=== PATIENT | female | born 1980 | race Caucasian/White ===

== ENCOUNTER 2022-11-18 16:04 | Emergency (ER) | payer OTHER, SELFPAY ==
[2022-11-18 16:22] VITALS: BP 134/84; PULSE 67; RESP 20; TEMP 37.2; O2SAT 98
--- NOTE | 2022-11-18 17:02 | ED.ABDPAIN ---
HPI - Abdominal Pain General Chief Complaint: Abdominal Pain Stated Complaint: poss diverticulitis Source: patient Mode of arrival: ambulatory Limitations: no limitations History of Present Illness HPI narrative: Patient presents for evaluation of left lower quadrant pain. Symptom onset today. Pain is intermittent, sharp, stabbing, 8/10 in severity, worse with certain movements. She has experienced nausea without vomiting. She also reports change in bowel pattern. She normally has several bowel movements per day. She had 1 small bowel movement earlier today, without the presence of blood or mucus in the stool. No fever or chills. She has an underlying history of Crohn's and diverticulosis. She is currently on sulfasalazine. she denies any urinary symptoms. No vaginal bleeding or discharge. She consumes ETOH socially. Related Data Home Medications Medication Instructions Recorded Confirmed lamotrigine 25 mg tablet 25 mg PO DAILY 11/18/22 11/18/22 omeprazole 40 mg capsule,delayed 40 mg PO DAILY 11/18/22 11/18/22 release sulfasalazine 500 mg 500 mg PO DAILY 11/18/22 11/18/22 tablet,delayed release Allergies Allergy/AdvReac Type Severity Reaction Status Date / Time No Known Allergies Allergy Verified 11/18/22 16:20 Review of Systems Review of Systems: CONSTITUTIONAL: Denies fever, chills, or sweats. EYES: Denies visual changes, redness, or discharge. ENT: Denies rhinorrhea, congestion, sore throat, or otalgia. CARDIOVASCULAR: Denies chest pain, palpitations, or edema. RESPIRATORY: Denies cough or dyspnea. GASTROINTESTINAL: Reports left lower quadrant pain and nausea. Reports decreased frequency of bowel movements. Denies vomiting or diarrhea GENITOURINARY: Denies dysuria or hematuria. SKIN: Denies rash or itching. MUSCULOSKELETAL: Denies back pain, joint pain, or myalgia. NEUROLOGIC: Denies headache, numbness, dizziness, or weakness. PSYCHIATRIC: Denies anxiety or depression. [facility] Past Medical History Medical History (Updated 11/18/22 @ 17:09 by Moris Bernal, WALDEMAR, ) Crohn disease Diverticulosis Surgical History Surgical History History of tonsillectomy Family History Family History Mother Family history non-contributory Social History Social History Smoking packs per day: 0.25 Smoking cigarettes per day: 5.0 Smoking status: Current every day smoker Alcohol intake: current Alcohol use details: social Substance use: never Living arrangements: with family Gender identity (if verbalized by the patient): Female Sexual Orientation (if Verbalized by the Patient): Straight or Heterosexual Spiritual care concerns: No Exam Narrative: GENERAL: Well-appearing, well-nourished, and in no acute distress. HEAD: Normocephalic, atraumatic. EYES: PERRLA and EOMI. ENT: Nares clear, no rhinorrhea or epistaxis. Mucous membranes moist. Oropharynx without tonsillar hypertrophy exudate or other lesions. Bilateral TMs pearly johnson nonbulging NECK: Supple. No adenopathy or masses. No carotid bruits or JVD CHEST: Clear to auscultation. No respiratory distress. No wheezes rales or rhonchi HEART: Regular rate and rhythm. No murmur heard. Normal peripheral pulses. ABDOMEN: Soft, tenderness noted in left lower quadrant without rebound or guarding. Abdomen is nondistended, normal active bowel sounds. EXTREMITIES: Normal range of motion. No edema. SKIN: Warm, dry, no rash. NEURO: No focal deficits. Alert and oriented x3. PSYCH: Normal mood and affect. Course Course Emergency Course: This is a 42-year-old female who presented for evaluation of left lower quadrant pain with an underlying history of Crohn's and diverticulosis. I am concerned that this is diverticulitis and she would likely benefit from labs
== END 2022-11-18 17:02 | disposition home or self-care (01) ==
LOC: EXPTROY 16:09
PROVIDERS: Emergency Provider Nurse Practitioner
DX: R10.32 Left lower quadrant pain (principal); K50.90 Crohn's disease, unspecified, without complications; Z87.19 Personal history of other diseases of the digestive system; F17.210 Nicotine dependence, cigarettes, uncomplicated
CPT/HCPCS: 99202; G0463

== ENCOUNTER 2022-11-18 17:16 | Emergency (ER) | payer OTHER, SELFPAY ==
--- NOTE | ~2022-11-18 | CT_ITS ---
EXAMINATION: CT abdomen pelvis w con DATE: 11/18/2022 20:42 INDICATION: Eval diverticulitis/crohns TECHNIQUE: Computed tomography (CT) of the abdomen and pelvis was performed with 100 mL Omnipaque-350 intravenous contrast. Automated exposure control and iterative reconstruction technique were employe d. The dose-length product was 1212.06 mGy-cm. COMPARISON: None. FINDINGS: Lower thorax: Lingular scar/atelectasis. Liver: Enlarged. Diffusely fatty infiltrated. Biliary/Gallbladder: Gallbladder is normal. No bile duct dilation. Pancreas: No mass or duct dilation. Spleen: Normal. Adrenals:No mass. Kidneys: No mass, stone, or hydronephrosis. GI tract: Mild distal esophageal and gastric wall edema No small or large bowel dilation. Normal appe ndix. Scattered diverticulosis. Short segment wall thickening at the junction of the distal descendin g colon and sigmoid colon, with adjacent inflammatory change and a single, inflamed diverticulum. No free air or fluid. Mesentery/Peritoneum: No ascites, mass, or free air. Retroperitoneum: No mass. Pelvis: Pelvic organs are within normal limits. Soft Tissues: Soft tissues and body wall unremarkable. Bones: No acute osseous finding. IMPRESSION: Hepatomegaly with steatosis. Acute uncomplicated diverticulitis in the left lower quadrant, at the ju nction of the distal descending and sigmoid colon. Reviewed, dictated and finalized at location K. IMPRESSION: Hepatomegaly with steatosis. Acute uncomplicated diverticulitis in the left low er quadrant, at the junction of the distal descending and sigmoid colon.
[2022-11-18 17:17] VITALS: BP 145/87; PULSE 92; RESP 16; TEMP 36.3; O2SAT 99
[2022-11-18 17:42] LABS: Basophils Absolute Auto 0.1 K/mm3 (0.0-0.1); Basophils Percent Auto 0.4 % (0.2-1.2); Eosinophils Absolute Auto 0.3 K/mm3 (0-0.3); Eosinophils Percent Auto 1.6 % (0-4.4); Hematocrit 42.9 % (37.0-47.0); Hemoglobin 14.2 g/dL (12.0-15.0); Immature Granulocyte Absolute 0.08 K/mm3 (0.00-0.031); Immature Granulocyte Percent A 0.5 % (0-0.5); Lymphocytes Absolute Auto 3.92 K/mm3 (0.9-3.2); Lymphocytes Percent Auto 24.4 % (18.3-44.2); Mean Corpuscular HGB Conc 33.1 g/dl (32-36); Mean Corpuscular Hemoglobin 30.5 pg (26-34); Mean Corpuscular Volume 92.3 fl (80-100); Mean Platelet Volume 11.1 fl (7.4-10.4); Monocytes Absolute Auto 1.2 K/mm3 (0.1-0.6); Monocytes Percent Auto 7.4 % (2.6-8.5); Neutrophils Absolute Auto 10.6 K/mm3 (1.3-6.7); Neutrophils Percent Auto 65.7 % (45.5-73.1); Platelet Count Result 261 k/mm3 (150-375); Red Blood Count 4.65 M/mm3 (4.2-5.4); Red Cell Distribution Width 12.9 % (11.5-14.5); White Blood Count 16.1 K/mm3 (4.5-10.0)
[2022-11-18 18:00] LABS: Alanine Aminotransferase 36 U/L (6-35); Albumin Level 4.4 g/dL (3.5-5.1); Alkaline Phosphatase 77 U/L (38-126); Anion Gap 7 mmol/L (8-16); Aspartate Amino Transferase 28 U/L (14-36); Bilirubin,Total 0.6 mg/dL (0.2-1.3); Blood Urea Nitrogen 17 mg/dL (7-17); Calcium 8.8 mg/dL (8.4-10.2); Carbon Dioxide 25 mmol/L (22-30); Chloride 105 mmol/L (98-107); Estimated CRCL calculation 136 ml/min; Estimated Glomerular Filt Rate > 60; Glucose 97 mg/dL (65-110); Lipase 45 U/L (23-300); Sodium 137 mmol/L (137-145)
[2022-11-18 18:20] LABS: Appearance Urine Cloudy (Clear); Bacteria Urine None Seen /hpf; Bilirubin Urine Negative (Negative); Blood Urine Negative (Negative); Color Urine Dark Yellow (Yellow); Glucose Urine UA Negative (Negative); Ketones Urine Negative (Negative); Leukocyte Esterase Ur Negative LEU/UL (Negative); Nitrate Urine Negative (Negative); Non Pathogenic Casts 0-2; Protein Urine Negative (Negative); RBC Urine 0-2 /hpf (0-2); Specific Grav Ur 1.028 (1.001-1.035); Squamous Epithelial Cell Urine None seen /hpf (Few); Urobilinogen Urine 0.2 mg/dL (<2.0); WBC Urine 0-5 /hpf; pH Urine 5.5 (5.0-9.0)
[2022-11-18 18:22] LABS: Add Urine Microscopic? YES
--- NOTE | 2022-11-18 20:38 | ED.GENADULT ---
HPI - General Adult General Chief complaint: Abdominal Pain Stated complaint: abdominal pain Time Seen by Provider: 11/18/22 19:24 History of Present Illness HPI narrative: this is a 42-year-old female with history of Crohn's and diverticular colitis presenting to ED with a chief complaint of abdominal pain. Pain is located in the left lower quadrant. Started this morning and woke her up from sleep. It is a stabbing pain in left lower quadrant that date out of 10 in intensity and comes and goes. This feels like when she had diverticulitis in the past. It is worse when she presses on it. There are no alleviating symptoms. She has not taken any pain medication. She has had some nausea and subjective fevers. She has had a change in her bowel habits but denies hematochezia or melena. She denies vomiting chest pain difficulty breathing urinary symptoms. Her last case of diverticulitis was 4-5 years ago. Her Crohn's has been under control. Related Data Home Medications Medication Instructions Recorded Confirmed lamotrigine 25 mg tablet 25 mg PO DAILY 11/18/22 11/18/22 omeprazole 40 mg capsule,delayed 40 mg PO DAILY 11/18/22 11/18/22 release sulfasalazine 500 mg 500 mg PO DAILY 11/18/22 11/18/22 tablet,delayed release Allergies Allergy/AdvReac Type Severity Reaction Status Date / Time No Known Allergies Allergy Verified 11/18/22 17:20 [facility] Past Medical History Medical History (Updated 11/18/22 @ 21:11 by Sterling Layton MD) Crohn disease Diverticulitis Diverticulosis Surgical History Surgical History History of tonsillectomy Family History Family History Mother Family history non-contributory Social History Social History Smoking packs per day: 0.25 Smoking cigarettes per day: 5.0 Smoking status: Current every day smoker Alcohol intake: current Alcohol use details: social Substance use: never Living arrangements: with family Gender identity (if verbalized by the patient): Female Sexual Orientation (if Verbalized by the Patient): Straight or Heterosexual Spiritual care concerns: No Exam Narrative: APPEARANCE: No apparent distress. Head: atraumatic. EYES: EOMI, NOSE: Atraumatic NECK: Trachea midline RESPIRATORY: No increased rate of breathing CARDIOVASCULAR: RRR, ABDOMINAL: Tenderness palpation left lower quadrant, no guarding or rebound. Soft. MUSCULOSKELETAl: No obvious deformities NEURO: Alert. Moving 4/4 extremities SKIN:: Warm, dry. Normal color PSYCHIATRIC: Normal affect Course Vital Signs Vital signs: Vital Signs Temperature 97.3 F L 11/18/22 17:17 Pulse Rate 92 11/18/22 17:17 Respiratory Rate 16 11/18/22 17:17 Blood Pressure 145/87 H 11/18/22 17:17 Pulse Oximetry 99 11/18/22 17:17 Temperature 97.3 F L 11/18/22 17:17 Pulse Rate 92 11/18/22 17:17 Respiratory Rate 16 11/18/22 17:17 Blood Pressure 145/87 H 11/18/22 17:17 Pulse Oximetry 99 11/18/22 17:17 Medical Decision Making [facility] Narrative Medical decision making narrative: -Presentation: 42-year-old with Crohn's diverticulitis presenting with left lower quadrant pain. 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 Metabolic panel is within normal limits. Lipase was normal. Urine was not indicative of infection. CT showed acute uncomplicated diverticulitis. Dx tests co
[2022-11-18] MEDS: HYDROmorphone HCL INJ (*CRX) 1 MG/ML SYR 0.5 MG IV PUSH (21:53)
[2022-11-18] MEDS: ONDANSETRON INJ 4 MG/2 ML VIAL IV PUSH (21:53)
[2022-11-18] MEDS: SODIUM CHLORIDE 0.9% IV 1,000 ML 30 ML IV CONT (22:01)
[2022-11-18] MEDS: AMOXICILLIN/CLAVULANATE K 875-125 MG TAB 1 TABLET PO (23:07)
--- NOTE | 2022-11-19 08:26 | PC.NURSE ---
Parisa called into ED and reported that patients insurance are not accepted. Prescriptions called into [facility] pharmacy and new rx for hydrocodone escribed per Dr. Dc. This RN called patient and informed her of new prescriptions called to the location of her choice.
== END 2022-11-18 23:12 | disposition home or self-care (01) ==
PROVIDERS: Emergency Medicine; Emergency Provider Emergency Medicine
DX: K57.92 Diverticulitis of intestine, part unspecified, without perforation or abscess without bleeding (principal); K50.90 Crohn's disease, unspecified, without complications; R10.9 Unspecified abdominal pain; F17.210 Nicotine dependence, cigarettes, uncomplicated
CPT/HCPCS: 36415; 74177; 80053; 81001; 81025; 83690; 85025; 96361; 96374; 96375; 99284; A9270; J1170; J2405; J7030; Q9967

== ENCOUNTER 2023-01-06 06:46 | Emergency (ER) | payer OTHER, SELFPAY ==
[2023-01-06] VITALS (15 sets, daily range): BP systolic 145–164; BP diastolic 91–96; PULSE 74–102; RESP 16–20; TEMP 36.8; O2SAT 95–99
--- NOTE | ~2023-01-06 | XR_ITS ---
EXAMINATION: XR chest 2V DATE: 01/06/2023 07:59 INDICATION: Cough. Chest pain. TECHNIQUE: Frontal and lateral views of the chest were obtained. COMPARISON: CT abdomen and pelvis 11/18/2022 FINDINGS: There is no pneumonia, pleural effusion, or pneumothorax. The heart size is normal. IMPRESSION: 1. No acute cardiopulmonary disease. Reviewed, dictated and finalized at location A.
--- NOTE | ~2023-01-06 | CT_ITS ---
EXAMINATION: CT abdomen pelvis w con DATE: 01/06/2023 08:16 INDICATION: Left lower quadrant abdominal pain. TECHNIQUE: Computed tomography (CT) of the abdomen and pelvis was performed with 100 mL Omnipaque 350 intravenous contrast. Automated exposure control and iterative reconstruction technique were employe d. The dose-length product was 1526.97 mGy-cm. COMPARISON: CT abdomen and pelvis 11/18/2022 FINDINGS: The visualized portions of the lung bases demonstrate minimal atelectasis. No pleural effus ion. The heart size is normal. No pericardial effusion. There is diffuse hepatic steatosis. There is a 6 mm hypodense mass in the spleen, likely granulomatous disease or a cyst. The pancreas and adrenal glands are normal. There is a 9 mm cyst in right kidney. Left kidney is normal. There are scattered diverticula in the colon. There is fat stranding around a sigmoid diverticulum, consistent with diver ticulitis. No perforation or abscess. The appendix is normal. There are no dilated loops of bowel. Th ere are no pathologically enlarged lymph nodes. There is no free intraperitoneal fluid. There is mild thoracic and lumbar spondylosis. IMPRESSION: 1. Sigmoid diverticulitis. No perforation or abscess. 2. Diffuse hepatic steatosis. Reviewed, dictated and finalized at location A.
[2023-01-06 07:29] LABS: Basophils Absolute Auto 0.1 K/mm3 (0.0-0.1); Basophils Percent Auto 0.3 % (0.2-1.2); Eosinophils Absolute Auto 0.2 K/mm3 (0-0.3); Hematocrit 42.8 % (37.0-47.0); Hemoglobin 13.9 g/dL (12.0-15.0); Immature Granulocyte Absolute 0.19 K/mm3 (0.00-0.031); Immature Granulocyte Percent A 0.8 % (0-0.5); Lymphocytes Absolute Auto 6.57 K/mm3 (0.9-3.2); Lymphocytes Percent Auto 28.6 % (18.3-44.2); Mean Corpuscular HGB Conc 32.5 g/dl (32-36); Mean Corpuscular Hemoglobin 30.3 pg (26-34); Mean Corpuscular Volume 93.4 fl (80-100); Mean Platelet Volume 10.8 fl (7.4-10.4); Monocytes Absolute Auto 1.2 K/mm3 (0.1-0.6); Monocytes Percent Auto 5.2 % (2.6-8.5); Neutrophils Absolute Auto 14.8 K/mm3 (1.3-6.7); Neutrophils Percent Auto 64.1 % (45.5-73.1); Platelet Count Result 297 k/mm3 (150-375); Red Blood Count 4.58 M/mm3 (4.2-5.4); Red Cell Distribution Width 13.2 % (11.5-14.5)
[2023-01-06 07:37] LABS: Appearance Urine Clear (Clear); Bilirubin Urine Negative (Negative); Blood Urine Negative (Negative); Color Urine Yellow (Yellow); Glucose Urine UA Negative (Negative); Ketones Urine Negative (Negative); Leukocyte Esterase Ur Negative LEU/UL (Negative); Nitrate Urine Negative (Negative); Protein Urine Negative (Negative); Specific Grav Ur 1.022 (1.001-1.035); Urobilinogen Urine 0.2 mg/dL (<2.0)
[2023-01-06 07:40] LABS: Add Urine Microscopic? NO
[2023-01-06 07:47] LABS: Alanine Aminotransferase 35 U/L (6-35); Albumin Level 4.2 g/dL (3.5-5.1); Alkaline Phosphatase 55 U/L (38-126); Anion Gap 7 mmol/L (8-16); Aspartate Amino Transferase 23 U/L (14-36); Bilirubin,Total 0.8 mg/dL (0.2-1.3); Blood Urea Nitrogen 14 mg/dL (7-17); Calcium 8.8 mg/dL (8.4-10.2); Carbon Dioxide 27 mmol/L (22-30); Chloride 103 mmol/L (98-107); Estimated CRCL calculation 160 ml/min; Estimated Glomerular Filt Rate > 60; Glucose 111 mg/dL (65-110); Lipase 55 U/L (23-300); Potassium 3.4 mmol/L (3.4-5.0); Sodium 137 mmol/L (137-145)
[2023-01-06 07:48] LABS: Platelet Estimate Adequate (Adequate); Schistocytes None Seen (NORMAL); Stomatocytes 1+ (NORMAL)
[2023-01-06] MEDS: IPRATROPIUM BR 0.02% INH SOLN 0.5 MG/2.5 ML VIAL 1.5 MG INHALATION (07:48)
[2023-01-06] MEDS: LEVALBUTEROL NEB 1.25 MG/3 ML 2.5 MG INHALATION (07:48)
[2023-01-06] MEDS: MORPHINE SULFATE (*CRX) 4 MG/ML INJ IV PUSH (07:53)
[2023-01-06] MEDS: SODIUM CHLORIDE 0.9% IV 1,000 ML 999 ML IV CONT (07:54)
--- NOTE | 2023-01-06 08:22 | ED.GENADULT ---
HPI - General Adult General Chief complaint: Abdominal Pain Stated complaint: diverticulitis Time Seen by Provider: 01/06/23 07:00 History of Present Illness HPI narrative: Patient is a 42-year-old female who presents ER with lower abdominal pain. Began yesterday evening. Has history of diverticulitis and this feels similar. Patient reports frequent diarrhea which is chronic due to her ulcerative colitis. No fevers or chills or sweats. Patient also reports cough and dyspnea which has been an ongoing issue. She has recently been on prednisone and azithromycin for bronchitis. No fevers or chills or sweats. No chest pain or chest pressure. No alleviating factors. Related Data Home Medications Medication Instructions Recorded Confirmed lamotrigine 25 mg tablet 25 mg PO DAILY 11/18/22 11/18/22 omeprazole 40 mg capsule,delayed 40 mg PO DAILY 11/18/22 11/18/22 release sulfasalazine 500 mg 500 mg PO DAILY 11/18/22 11/18/22 tablet,delayed release Allergies Allergy/AdvReac Type Severity Reaction Status Date / Time No Known Allergies Allergy Verified 11/18/22 17:20 Review of Systems Review of Systems: All systems reviewed & are unremarkable except as noted in HPI and below Constitutional: Constitutional: Denies chills, Denies fatigue and Denies fever(s) ENT: Denies nasal congestion and Denies sore throat Cardiovascular: Cardiovascular: Denies chest pain and Denies radiating jaw, neck or arm pain Respiratory: Respiratory: Reports cough, Reports dyspnea and Reports wheezing Gastrointestinal: Gastrointestinal: Reports abdominal pain, Reports diarrhea, Denies nausea and Denies vomiting Genitourinary: Genitourinary: Denies nocturia and Denies dysuria [facility] Past Medical History Medical History (Updated 01/06/23 @ 09:23 by Tomas Orosco MD) Crohn disease Diverticulitis Diverticulosis Surgical History Surgical History History of tonsillectomy Family History Family History Mother Family history non-contributory Social History Social History Smoking packs per day: 0.25 Smoking cigarettes per day: 5.0 Smoking status: Current every day smoker Alcohol intake: current Alcohol use details: social Substance use: never Living arrangements: with family Gender identity (if verbalized by the patient): Female Sexual Orientation (if Verbalized by the Patient): Straight or Heterosexual Spiritual care concerns: No Exam Narrative: GENERAL: Well-appearing, well-nourished, and in no acute distress. HEAD: Normocephalic, atraumatic. ENT: Mucous membranes moist. CHEST: Clear to auscultation. No respiratory distress. HEART: Regular rate and rhythm. Normal peripheral pulses. ABDOMEN: Soft, mild tenderness palpation left lower quadrant, nondistended. EXTREMITIES: Normal range of motion. No edema. SKIN: Warm, dry, no rash. NEURO: Alert and oriented x3. PSYCH: Normal mood and affect. Course Course Emergency Course: Patient resting comfortably. Lungs clear after nebulizer treatment. Informed of lab and imaging results. Discharge home with Augmentin and pain control. Patient has follow-up with GI in 9 days. Vital Signs Vital signs: Vital Signs Temperature 98.3 F 01/06/23 06:51 Pulse Rate 102 H 01/06/23 06:51 Respiratory Rate 16 01/06/23 06:51 Blood Pressure 145/91 H 01/06/23 06:51 Pulse Oximetry 97 01/06/23 06:51 Oxygen Delivery Room Air 01/06/23 06:51 Temperature 98.3 F 01/06/23 06:51 Pulse Rate 74 01/06/23 08:50 Respiratory Rate 20 01/06/23 08:50 Blood Pressure 150/93 H 01/06/23 09:17 Pulse Oximetry 98 01/06/23 09:17 Oxygen Delivery Room Air 01/06/23 06:51 Medical Decision Making Vital Signs Vital Signs: Vital Signs Temperature 98.3 F
[2023-01-06] MEDS: HYDROmorphone HCL INJ (*CRX) 1 MG/ML SYR 0.5 MG IV PUSH (08:56)
== END 2023-01-06 09:36 | disposition home or self-care (01) ==
PROVIDERS: Emergency Provider Emergency Medicine
DX: K57.32 Diverticulitis of large intestine without perforation or abscess without bleeding (principal); K50.90 Crohn's disease, unspecified, without complications; F17.210 Nicotine dependence, cigarettes, uncomplicated; K76.0 Fatty (change of) liver, not elsewhere classified
CPT/HCPCS: 36415; 71046; 74177; 80053; 81003; 81025; 83690; 85025; 94640; 96361; 96374; 96375; 99284; J1170; J2270; J7030; Q9967

== ENCOUNTER 2023-07-17 16:13 | Emergency (ER) | payer BC, SELFPAY ==
--- NOTE | 2023-07-17 16:21 | ED.SKABFB ---
HPI - Skin/Abscess/Foreign Bdy General Chief complaint: Skin/Abscess/Foreign Body Stated complaint: Rash on Back Source: patient and RN notes reviewed History of Present Illness HPI narrative: 42 yo F presents to urgent care with complaints of a rash to her back since Saturday. Pt states she had a fever last night. Pt states she was in a hot tub on Saturday night and not sure if thats what this is. Does report a hx of staph infection. States she wants to itch it but she has been good about not itching it. Denies any other symptoms. Related Data Home Medications Medication Instructions Recorded Confirmed lamotrigine 25 mg tablet 25 mg PO DAILY 11/18/22 07/17/23 omeprazole 40 mg capsule,delayed 40 mg PO DAILY 11/18/22 07/17/23 release bupropion HCl 150 mg tablet,12 hr 150 mg PO DIRECTED 07/17/23 07/17/23 sustained-release buspirone 5 mg tablet 5 mg DIRECTED 07/17/23 07/17/23 hydroxyzine HCl 25 mg tablet 25 mg DIRECTED 07/17/23 07/17/23 meloxicam 15 mg tablet 15 mg DIRECTED 07/17/23 07/17/23 rosuvastatin 10 mg tablet 10 mg DIRECTED 07/17/23 07/17/23 sulfasalazine 500 mg tablet 500 mg DIRECTED 07/17/23 07/17/23 tramadol 50 mg tablet 50 mg DIRECTED 07/17/23 07/17/23 Allergies Allergy/AdvReac Type Severity Reaction Status Date / Time No Known Allergies Allergy Verified 11/18/22 17:20 Review of Systems Review of Systems: CONSTITUTIONAL: Fever last night EYES: Denies visual changes, redness, or discharge. ENT: Denies otalgia and sore throat CARDIOVASCULAR: Denies chest pain, palpitations, or edema. RESPIRATORY: Denies cough or dyspnea. GASTROINTESTINAL: Denies abdominal pain, nausea, vomiting, or diarrhea. GENITOURINARY: Denies dysuria or hematuria. MUSCULOSKELETAL: Denies back pain, joint pain, or myalgia. NEUROLOGIC: Denies headache, numbness, or weakness. Pertinent positives per HPI. [facility]LY [facility] Past Medical History Medical History (Updated 07/17/23 @ 16:42 by Magalys Ramos, LUIS ALBERTO) Crohn disease Diverticulitis Diverticulosis Surgical History Surgical History History of tonsillectomy Family History Family History Mother Family history non-contributory Social History Social History Smoking packs per day: 0.25 Smoking cigarettes per day: 5.0 Smoking status: Current every day smoker Alcohol intake: current Alcohol use details: social Substance use: never Living arrangements: with family Gender identity (if verbalized by the patient): Female Sexual Orientation (if Verbalized by the Patient): Straight or Heterosexual Spiritual care concerns: No Comments At the time of my signature, I reviewed and agree with the nursing past medical, surgical, social, and family history. There is no relevant family history pertinent to the patient complaint. Exam Narrative: GENERAL: This is a well-nourished, well-developed patient, in no apparent distress. HEAD: normocephalic, atraumatic. EYES: Sclera clear/white. Vision is grossly intact. EARS: External ears normal, auditory canals clear and without drainage. Hearing grossly intact. NOSE: External nose normal with no obvious nasal discharge, nares without redness, no rhinorrhea. THROAT: Mucous membranes moist, posterior pharynx clear. NECK: Neck supple, non-tender without lymphadenopathy, masses or thyromegaly. CARDIOVASCULAR: Regular rate RESPIRATORY: No respiratory distress GASTROINTESTINAL: Abdomen soft, non-tender, nondistended. Bowel sounds are active. No hepato-splenomegaly, or palpable masses. No guarding. SKIN: erythremic papules scattered over pt's back with few to abdomen and lateral breasts. NEURO: awake, alert, and oriented to person, place and time. There were no obvious focal neurologic abnormalities. EXTREMITIES: No clubbing,
[2023-07-17 16:22] VITALS: BP 134/106; PULSE 100; RESP 16; TEMP 36.6; O2SAT 98
== END 2023-07-17 16:57 | disposition home or self-care (01) ==
PROVIDERS: Emergency Provider Nurse Practitioner Family; PCP Nurse Practitioner Family
DX: L73.9 Follicular disorder, unspecified (principal); F17.210 Nicotine dependence, cigarettes, uncomplicated; Z79.899 Other long term (current) drug therapy; Z79.1 Long term (current) use of non-steroidal anti-inflammatories (NSAID); Z79.891 Long term (current) use of opiate analgesic
CPT/HCPCS: 99213; G0463

== ENCOUNTER 2023-10-07 11:13 | Emergency (ER) | payer BC, SELFPAY ==
--- NOTE | 2023-10-07 11:16 | ED.URI ---
HPI - URI/Sore Throat General Chief Complaint: Upper Respiratory Infection Stated Complaint: Congestion, Siuns Problems Time Seen by Provider: 10/07/23 11:15 Source: patient Mode of arrival: ambulatory Limitations: no limitations History of Present Illness HPI Narrative: Yusra is a 43-year-old female patient presenting to the clinic today with complaints of nasal congestion and headache x2 days. She reports no known fever or chills. Denies any cough, shortness of breath, or chest pain. Has been taking Tylenol to alleviate her symptoms without much relief. Believes that she may have a sinus infection. MD elicited complaint: sore throat and nasal congestion Related Data Home Medications Medication Instructions Recorded Confirmed lamotrigine 25 mg tablet 25 mg PO DAILY 11/18/22 10/07/23 omeprazole 40 mg capsule,delayed 40 mg PO DAILY 11/18/22 10/07/23 release bupropion HCl 150 mg tablet,12 hr 150 mg PO DIRECTED 07/17/23 10/07/23 sustained-release buspirone 5 mg tablet 5 mg DIRECTED 07/17/23 10/07/23 hydroxyzine HCl 25 mg tablet 25 mg DIRECTED 07/17/23 10/07/23 meloxicam 15 mg tablet 15 mg DIRECTED 07/17/23 10/07/23 rosuvastatin 10 mg tablet 10 mg DIRECTED 07/17/23 10/07/23 sulfasalazine 500 mg tablet 500 mg DIRECTED 07/17/23 10/07/23 Allergies Allergy/AdvReac Type Severity Reaction Status Date / Time fluoxetine [From Prozac] AdvReac Mild Rash Verified 10/07/23 12:01 Review of Systems Review of Systems: Pertinent positives per HPI. Patient denies any fever, chills, rash, visual changes, dizziness, shortness of breath, chest pain, palpitations, nausea, vomiting, diarrhea, constipation, abdominal pain, or any urinary issues. [facility] Past Medical History Medical History Crohn disease Diverticulitis Diverticulosis Surgical History Surgical History History of tonsillectomy Family History Family History Mother Family history non-contributory Social History Social History Smoking packs per day: 0.25 Smoking cigarettes per day: 5.0 Smoking status: Current every day smoker Alcohol intake: current Alcohol use details: social Substance use: never Living arrangements: with family Gender identity (if verbalized by the patient): Female Sexual Orientation (if Verbalized by the Patient): Straight or Heterosexual Spiritual care concerns: No Comments At the time of my signature, I reviewed and agree with the nursing past medical, surgical, social, and family history. There is no relevant family history pertinent to the patient complaint. Exam Narrative: General: Well-developed,obese, in no apparent distress Head: Normocephalic, atraumatic Eyes: Pupils equally round and reactive to light bilaterally, EOM intact, sclera and conjunctive clear, no discharge, lids normal Ears: TMs intact and congested, ear canals clear, no drainage, grossly hearing normal. Nose: Nares patent, clear nasal discharge, mild inflammation, no sinus tenderness. Mouth: Oral pharynx without lesions or masses, good dentition, MMM. Tonsils surgically absent Neck: Supple, trachea midline, no enlargement of anterior or posterior cervical nodes, no thyroid masses or goiter palpable. Cardio: Regular rate and rhythm, s1 and s2 normal, no murmur appreciated. Resp: Clear to auscultation bilaterally, no rhonchi, rales, wheezing or rubs Course Course Emergency Course: Portions of this record may have been created with voice recognition software. Level of Care: Express Care Visit Vital Signs Vital signs: Vital signs reviewed MDM - URI/Sore Throat MDM Narrative Medical decision making narrative: At the time of visit patient is resting comfortably on the exam tab
[2023-10-07 11:22] VITALS: BP 134/88; PULSE 96; RESP 16; TEMP 36.2; O2SAT 96
== END 2023-10-07 12:10 | disposition home or self-care (01) ==
PROVIDERS: Emergency Provider Nurse Practitioner Family; PCP Nurse Practitioner Family
DX: J06.9 Acute upper respiratory infection, unspecified (principal); Z20.822 Contact with and (suspected) exposure to COVID-19; F17.210 Nicotine dependence, cigarettes, uncomplicated; K50.90 Crohn's disease, unspecified, without complications
CPT/HCPCS: 87426; 99213; G0463

== ENCOUNTER 2023-10-09 11:39 | Outpatient (CLI) | payer BC, SELFPAY ==
[2023-10-09 12:01] LABS: Basophils Absolute Auto 0.1 K/mm3 (0.0-0.1); Basophils Percent Auto 0.5 % (0.2-1.2); Eosinophils Absolute Auto 0.1 K/mm3 (0-0.3); Eosinophils Percent Auto 0.4 % (0-4.4); Hematocrit 42.8 % (37.0-47.0); Hemoglobin 14.1 g/dL (12.0-15.0); Immature Granulocyte Absolute 0.08 K/mm3 (0.00-0.031); Immature Granulocyte Percent A 0.6 % (0-0.5); Lymphocytes Absolute Auto 4.39 K/mm3 (0.9-3.2); Lymphocytes Percent Auto 31.5 % (18.3-44.2); Mean Corpuscular HGB Conc 32.9 g/dl (32-36); Mean Corpuscular Hemoglobin 30.7 pg (26-34); Mean Corpuscular Volume 93.2 fl (80-100); Mean Platelet Volume 10.5 fl (7.4-10.4); Monocytes Absolute Auto 1.2 K/mm3 (0.1-0.6); Monocytes Percent Auto 8.3 % (2.6-8.5); Neutrophils Absolute Auto 8.2 K/mm3 (1.3-6.7); Neutrophils Percent Auto 58.7 % (45.5-73.1); Platelet Count Result 306 k/mm3 (150-375); Red Blood Count 4.59 M/mm3 (4.2-5.4); Red Cell Distribution Width 13.4 % (11.5-14.5); White Blood Count 13.9 K/mm3 (4.5-10.0)
[2023-10-09 12:51] LABS: Alanine Aminotransferase 25 U/L (6-35); Albumin Level 4.3 g/dL (3.5-5.1); Alkaline Phosphatase 63 U/L (38-126); Anion Gap 8 mmol/L (8-16); Aspartate Amino Transferase 21 U/L (14-36); Bilirubin,Total 0.4 mg/dL (0.2-1.3); Blood Urea Nitrogen 17 mg/dL (7-17); CRP < 0.5 mg/dL (<1.0); Calcium 9.4 mg/dL (8.4-10.2); Carbon Dioxide 26 mmol/L (22-30); Chloride 103 mmol/L (98-107); Estimated Glomerular Filt Rate > 60; Glucose 101 mg/dL (65-110); Potassium 3.9 mmol/L (3.4-5.0); Sodium 137 mmol/L (137-145)
[2023-10-09 13:55] LABS: Erythrocyte Sedimentation Rate 7 mm/hr (0-20)
== END 2023-10-09 11:40 | disposition home or self-care (01) ==
LOC: ANHLAB 11:40
PROVIDERS: PCP Nurse Practitioner Family; Visit Provider Internal Medicine Hematology & Oncology
DX: D72.829 Elevated white blood cell count, unspecified (principal)
CPT/HCPCS: 36415; 80053; 85025; 85652; 86140; 88184

== ENCOUNTER 2023-12-23 09:33 | Outpatient (CLI) | payer BC, SELFPAY ==
[2023-12-23 10:03] LABS: Hematocrit 43.3 % (37.0-47.0); Hemoglobin 13.7 g/dL (12.0-15.0)
== END 2023-12-23 09:34 | disposition home or self-care (01) ==
LOC: ANHSURGERY 09:37
PROVIDERS: PCP Nurse Practitioner Family; Visit Provider Student in an Organized Health Care Education/Training Program
DX: N93.9 Abnormal uterine and vaginal bleeding, unspecified (principal); Z01.818 Encounter for other preprocedural examination
CPT/HCPCS: 36415; 85014; 85018

== ENCOUNTER 2023-12-27 00:20 | Day surgery (SDC) | payer BC, SELFPAY ==
[2023-12-18 09:24] VITALS: BMI 36.5
--- NOTE | 2023-12-18 09:58 | PC.NURSE ---
Report to the Outpatient Waiting Room, entrance under the green pavilion located off [facility], at time __1000 on date _12/27/23 . Planned Procedure Time: _1200 . Time changes happen often and if your time is changed the preop area will call you the afternoon before. - You and your visitor will be asked to self-screen and do not enter if you have any COVID symptoms. - A mask is optional within the hospital at this time. Patients may have clear liquids (water, carbonated beverages, clear teas, apple juice) until 3 hours prior to surgery with a maximum of 20 ounces. - No food from midnight until time of surgery - Infants may have breast milk until 4 hours before surgery, infant formula 6 hours prior to surgery. - Children will be allowed to drink immediately following surgery. If applicable, please bring a bottle or sippy cup to assist with drinking. Juice, water, soda, and popsicles are readily available. For infants on formula, please bring formula the day of surgery. Pacifiers are allowed. Take the following medications with a SIP of water the morning of surgery: _Inhailer, Bupropion; Buspar, Hysdrxyzine, and tramadol PRN DO NOT STOP ANY OF YOUR OTHER PRESCRIPTION MEDICATIONS PRIOR TO SURGERY ?EXCEPT THE FOLLOWING Medications to discontinue per physician __Vitamins and supplements Date to take last dose__12/23/23 Please no make-up, nail scottish, hairspray, perfume, deodorant, or body powder the day of surgery. No jewelry (including any body piercings) or valuables the day of surgery, leave them at home. Please take a shower or bath the night before, or the morning of, surgery with an antibacterial soap. Wear comfortable, loose fitting clothing. Children are encouraged to wear pajamas. - Jewelry must be removed prior to entering the operating room. Rings and piercings that are not removed may be cut off. - The hospital will not accept responsibility for valuables. - Please leave all valuables, including medications, at home the day of surgery. If you are going home after surgery, a licensed concrete pile driver operator must drive you home. - NO public transportation without another adult if you receive anesthesia. - We recommend that an adult stay with you for 24 hours following discharge. - We also recommend that you do not drive, make important decision, drink alcoholic beverages, or take any drugs that were not prescribed by your health care provider for at least 24 hours after your discharge time. For Pediatric surgeries, we recommend two adults accompany the child home. Follow any additional instructions given to you from your surgeon. If you or anyone in your household have experienced Covid symptoms in the past week, please notify your surgeon or the nurse liaison at the phone number below for possible testing. Telephone instructions given to _Cele and asked if any additional questions and then verbalized understanding. Patient advised to call surgeon office or pre surgery nurse liaison [phone] if any additional questions.
[2023-12-27] VITALS (11 sets, daily range): BP systolic 104–127; BP diastolic 53–92; PULSE 70–82; RESP 13–23; TEMP 36.3; O2SAT 93–100
--- NOTE | 2023-12-27 08:44 | PM.IMHP ---
H&P: HPI History of Present Illness Date/Time: 12/27/23 08:44 Chief Complaint: Abnormal Uterine Bleeding Narrative: ?43-year-old female presents with complaint of abnormal uterine bleeding.?Patient has been off of hormonal contraceptive pills for over a year.? She reports regular monthly menses.?She states her bleeding has become heavy and prolonged. Patient states her bleeding profile was previously light and tolerable.? Patient denies any abdominal pain or bothersome uterine cramping.? Patient's partner has had vasectomy for contraception.? Patient is interested in definitive management via endometrial ablation. Review of Systems Cardiovascular: Cardiovascular: Denies chest pain, Denies leg edema, Denies palpitations, Denies dyspnea and Denies dyspnea on exertion Respiratory: Respiratory: Denies cough, Denies dyspnea and Denies dyspnea on exertion Gastrointestinal: Gastrointestinal: Denies abdominal pain, Denies constipation, Denies diarrhea, Denies nausea and Denies vomiting Genitourinary: Genitourinary: Denies hematuria, Denies urinary frequency, Denies dysuria, Denies pelvic pain, Denies urinary incontinence and Denies vaginal discharge Neurologic: Reports system reviewed and no additional complaints, except as documented Psychiatric: Psychiatric: Reports no additional psychiatric complaints Endocrine: Endocrine: Denies palpitations PMFSH Past Medical History Medical History Anxiety Crohn disease CTS (carpal tunnel syndrome) Diverticulitis Diverticulosis GERD (gastroesophageal reflux disease) Hyperlipidemia Left ACL tear repair in left Obese CHUCK (obstructive sleep apnea) Osteoarthritis of knee Screening mammogram for breast cancer Seasonal allergies Surgical History Surgical History H/O colonoscopy History of tonsillectomy S/P ACL repair left Status post carpal tunnel release of both wrists Family History Family History Mother Family history non-contributory Acute rheumatic arthritis Diabetes mellitus Alcoholism Grandparent Cerebrovascular accident maternal grandmother / paternal grandfather Father Cerebrovascular accident Grandparent Alcoholism Heart disease Cerebrovascular accident Social History Social History Smoking packs per day: 0.25 Smoking cigarettes per day: 5.0 Years smoked: 20 Smoking pack-years: 5.00 Smoking status: Current every day smoker Tobacco type: cigarettes Second hand tobacco smoke exposure: Yes Alcohol intake: current Alcohol use details: 1 monthly Substance use: never Substance use type: does not use Do You Feel Safe in your Home?: Yes Lack of Transportation: No Lack of Food: Never True Current Housing: I Have Housing Concerned About Future Housing: No Difficulty Paying Gas/Electric Bills: No Difficulty Paying for Meds: No Currently Unemployed: No Education: Associate Degree Difficulty w/ Childcare or Family Care: No Living arrangements: with family Additional living arrangements comments: / partner now for 6 years Occupation/Education: occupation Additional occupation/education comments: truck chauffeur Gender identity (if verbalized by the patient): Female Sexual Orientation (if Verbalized by the Patient): Straight or Heterosexual Spiritual care concerns: No Agree to blood products: Yes Meds Home Medications and Allergies Home Medications Medication Instructions Recorded Confirmed Type lamotrigine 25 mg tablet 50 mg PO HS 11/18/22 12/25/23 History omeprazole 40 mg capsule,delayed 40 mg PO DAILY 11/18/22 12/25/23 History release albuterol sulfate 90 mcg/actuation 2 puff inhalation QID PRN 01/06/23 12/25/23 Rx aerosol inhaler shortness of breath or
[2023-12-27] MEDS: ACETAMINOPHEN 500 MG TABLET 1000 MG PO (11:06)
--- NOTE | 2023-12-27 11:57 | WPDANESEPPF ---
Anes - Initial Pre Proc Eval Procedure: Operation Date: 12/27/23 12:00 Proposed Procedures p Hysteroscopy Dilation and Curettage with Graciela Endometrial Ablation - Hayden Johnston MD Date/Time: 12/27/23 11:57 Surgeon: Hayden Johnston MD Pre Op Diagnosis: abnormal uterine bleeding Patient Data Age: 43 Gender: F Height: 1.73 m Weight: 108.86 kg Last Vital Signs O2 Del Method Room Air 12/18/23 10:06 Allergies Allergy/AdvReac Type Severity Reaction Status Date / Time fluoxetine [From Prozac] AdvReac Mild Rash Verified 12/27/23 10:41 Home Medications Medication Instructions Recorded Confirmed Type lamotrigine 25 mg tablet 50 mg PO HS 11/18/22 12/27/23 History omeprazole 40 mg capsule,delayed 40 mg PO DAILY 11/18/22 12/27/23 History release albuterol sulfate 90 mcg/actuation 2 puff inhalation QID PRN 01/06/23 12/27/23 Rx aerosol inhaler shortness of breath or wheezing #8 grams bupropion HCl 150 mg tablet,12 hr 150 mg PO BID 07/17/23 12/27/23 History sustained-release buspirone 5 mg tablet 5 mg PO BID PRN Anxiety 07/17/23 12/27/23 History hydroxyzine HCl 25 mg tablet 25 mg PO BID PRN Anxiety 07/17/23 12/27/23 History meloxicam 15 mg tablet 15 mg PO EVERY OTHER DAY PRN 07/17/23 12/27/23 History Muscle Pain rosuvastatin 10 mg tablet 10 mg PO HS 07/17/23 12/27/23 History sulfasalazine 500 mg tablet 500 mg PO BID 07/17/23 12/27/23 History tramadol 50 mg tablet 50 mg PO Q12H PRN pain #20 tabs 11/26/23 12/27/23 Rx phentermine 37.5 mg capsule 37.5 mg PO DAILY #30 caps 12/25/23 12/27/23 Rx spironolactone 50 mg tablet 50 mg PO QAM #90 tabs 12/25/23 12/27/23 Rx Patient hx anesthesia problems: none Family hx anesthesia problems: none Results Review: All pre-operative results and documents have been reviewed as part of the pre-operative evaluation. [facility] Past Medical History Medical History Anxiety Crohn disease CTS (carpal tunnel syndrome) Diverticulitis Diverticulosis GERD (gastroesophageal reflux disease) Hyperlipidemia Left ACL tear repair in left Obese CHUCK (obstructive sleep apnea) Osteoarthritis of knee Screening mammogram for breast cancer Seasonal allergies Surgical History Surgical History H/O colonoscopy History of tonsillectomy S/P ACL repair left Status post carpal tunnel release of both wrists Family History Family History Mother Family history non-contributory Acute rheumatic arthritis Diabetes mellitus Alcoholism Grandparent Cerebrovascular accident maternal grandmother / paternal grandfather Father Cerebrovascular accident Grandparent Alcoholism Heart disease Cerebrovascular accident Social History Social History Smoking packs per day: 0.25 Smoking cigarettes per day: 5.0 Years smoked: 20 Smoking pack-years: 5.00 Smoking status: Current every day smoker Tobacco type: cigarettes Second hand tobacco smoke exposure: Yes Alcohol intake: current Alcohol use details: 1 monthly Substance use: never Substance use type: does not use Do You Feel Safe in your Home?: Yes Lack of Transportation: No Lack of Food: Never True Current Housing: I Have Housing Concerned About Future Housing: No Difficulty Paying Gas/Electric Bills: No Difficulty Paying for Meds: No Currently Unemployed: No Education: Associate Degree Difficulty w/ Childcare or Family Care: No Living arrangements: with family Additional living arrangements comments: / partner now for 6 years Occupation/Education: occupation 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
--- NOTE | 2023-12-27 12:03 | WPDHPUPDATE1 ---
History and Physical Update Update Date/Time: 12/27/23 12:03 History and Physical has been reviewed, including an updated exam of the patient. There are NO changes in the patient's condition. Risks, benefits, and alternatives have been discussed and questions answered. Patient agrees to proceed with procedure.
[2023-12-27] MEDS: LIDOCAINE HCL 1% LOCAL INJ 20 ML VIAL 10 ML INFILTRATE (12:55)
--- NOTE | 2023-12-27 13:52 | W.PM.PROC2 ---
Procedure Note - Detailed Date of Procedure 12/27/23 Pre-op Diagnosis abnormal uterine bleeding Post-op Diagnosis Same Procedure Performed hysteroscopy dilation & curettage diagnostic laparoscopy Surgeon Hayden Johnston MD Anesthesia General Indications abnormal uterine bleeding Findings normal appearing intrauterine cavity. Normal tubal ostia bilaterally Description of Procedure Yusra Roberts presents for the above procedure. She was counseled as to the indications, risks, benefits, and alternatives to surgery, with the risks including bleeding, infection, damage to surrounding organs, VTE, and complications of anesthesia. Her verbal and written consent was obtained. PROCEDURE: The patient was taken to the OR and general anesthesia induced. She was prepped and draped in Asim stirrups with support of the back and bilateral lower extremities. I/O catheterization performed of the bladder. The above findings were noted. A single tooth tenaculum was placed on the anterior lip of the cervix. The uterus sounded to 7 cm. The cervix was dilated with sequential Tosha dilators. Hysteroscopy, using a normal saline medium, was performed and showed the above findings. Sharp uterine curettage was then performed and tissue placed on Telfa. The Graciela device was set to a depth of 5.5 cm. The device was inserted into the uterus and deployed. The device was unable to deploy fully. The ablation array indicated showed that the device was not fully opening. The cervical canal was dilated further to allow easier access to the uterine cavity. The device was re-inserted and again was found to not deploy fully. The hysteroscope was re-inserted and good integirty of the uterine cavity was confirmed. The depth of the device was changed to 4.5 cm in an attempt to get a better fit. The device was again re-inserted. With multiple attempts, the device would not deploy fully. After an attempt to test the device, the uterine integrity error displayed. The hysteroscope was re-introduced and a perforation was noted at the apex of the fundus. At this time, the procedure was aborted. Due to the perforation, decision was made to proceed with diagnostic laparoscopy to assess for hemostasis and any other organ damage. After the abdomen was prepped and draped for laparoscopy, an acorn uterine manipulator was placed. Attention was then turned to the abdomen which was anesthetized umbilically with injected anesthestic. A 5 mm skin incision was made in the umbilicus. A 5 mm optical trocar was then placed with direct camera visualization of the abdominal layers during placement. The trocar stylet was removed and the camera was used to verify intra-abdominal placement. CO2 insufflation was then connected and resumed. The pelvis was inspected. There was a small amount of bloody fluid within the abdominal cavity. Hysteroscope had shown 200 ml of fluid deficit. The small uterine perforation was noted at the apex of the uterine fundus. No active bleeding was noted. Decision was made to complete the laparoscopic evaluation. Sponge, lap and needle counts were correct. All skin incisions were closed with 4-0 Vicryl suture subcuticularly. The uterine manipulator was removed from the uterus. Hemostasis of the cervix was noted. The urinary catheter was removed. The patient was taken out of dorsal lithotomy position. Anesthesia was reversed. The patient was taken to the PACU. The patient was taken to the recovery room in stable condition. Estimated Blood Loss 100 Urine Output 25 Drains No Packing No Pathology Yes (endometrial curettings ) Complications No immediate complications Condition Stable Disposition PACU [facility] Billing Surgery - Charge Forward: Surgery Billing
[2023-12-27] MEDS: LACTATED RINGERS 1,000 ML 30 ML IV CONT ×2 (13:57→13:58)
[2023-12-27] MEDS: fentaNYL CITRATE INJ (*CRX) 100 MCG/2 ML VIAL 25 MCG IV PUSH ×8 (14:26→15:03)
[2023-12-27] MEDS: oxyCODONE HCL (*CRX) 5 MG TAB IR PO (15:45)
== END 2023-12-27 17:02 | disposition home or self-care (01) ==
PROVIDERS: PCP Nurse Practitioner Family; Visit Provider Student in an Organized Health Care Education/Training Program
PROC: 0U5B8ZZ Destruction of Endometrium, Via Natural or Artificial Opening Endoscopic (ICD-10-PCS; CPT 58563; principal; 2023-12-27 12:00)
DX: N93.9 Abnormal uterine and vaginal bleeding, unspecified (principal); N99.71 Accidental puncture and laceration of a genitourinary system organ or structure during a genitourinary system procedure; E78.5 Hyperlipidemia, unspecified; G47.33 Obstructive sleep apnea (adult) (pediatric); F41.9 Anxiety disorder, unspecified; K21.9 Gastro-esophageal reflux disease without esophagitis; F17.210 Nicotine dependence, cigarettes, uncomplicated; E66.9 Obesity, unspecified; Z68.36 Body mass index [BMI] 36.0-36.9, adult; Z79.51 Long term (current) use of inhaled steroids
CPT/HCPCS: 58563; 49320; 36415; 85014; 85018; 88305; A9270; J1100; J1200; J2250; J2405; J2704; J3010; J7120

== ENCOUNTER 2024-07-17 11:33 | Outpatient (CLI) | payer BC, SELFPAY ==
[2024-07-17 12:29] LABS: Anion Gap 10 mmol/L (4-12); Blood Urea Nitrogen 17 mg/dL (7-17); Calcium 9.3 mg/dL (8.4-10.2); Carbon Dioxide 26 mmol/L (22-30); Chloride 103 mmol/L (98-107); Estimated Glomerular Filt Rate > 60; Glucose 113 mg/dL (65-110); Potassium 4.1 mmol/L (3.4-5.0); Sodium 139 mmol/L (137-145)
== END 2024-07-17 11:34 | disposition home or self-care (01) ==
LOC: ANHSURGERY 11:39
PROVIDERS: Anesthesiology; PCP Nurse Practitioner Family; Visit Provider Student in an Organized Health Care Education/Training Program
DX: Z01.812 Encounter for preprocedural laboratory examination (principal); N93.9 Abnormal uterine and vaginal bleeding, unspecified; Z79.899 Other long term (current) drug therapy
CPT/HCPCS: 36415; 80048; 86850; 86900; 86901

== ENCOUNTER 2024-07-22 00:55 | Day surgery (SDC) | payer BC, SELFPAY ==
[2024-07-16 11:35] VITALS: BMI 38.0
--- NOTE | 2024-07-16 11:42 | PC.NURSE ---
Report to the Outpatient Waiting Room, entrance under the green pavilion located off [facility], at time _0600_ on date _[id number]_. Planned Procedure Time: _0730_.? Time changes happen often and if your time is changed the preop area will call you the afternoon before. - You and your visitor will be asked to self-screen and do not enter if you have any COVID symptoms. Please call surgeon if you need to reschedule. - A mask is optional within the hospital at this time. Patients may have clear liquids (water, carbonated beverages, clear teas, apple juice) until 3 hours prior to surgery with a maximum of 20 ounces. - No food from midnight until time of surgery and no smoking Take only the following medications with a SIP of water on the morning of surgery: ___Bupropion, and if needed Hydroxizine.____ DO NOT STOP ANY OF YOUR OTHER PRESCRIPTION MEDICATIONS PRIOR TO SURGERY EXCEPT THE FOLLOWING Medications to discontinue per physician ___Vitamins and supplements Date to take last vvfx____[id number]___ Please no make-up, nail kosovan, hairspray, perfume, deodorant, or body powder the day of surgery.? No jewelry (including any body piercings) or valuables the day of surgery, leave them at home.? Please take a shower or bath the night before, or the morning of, surgery with an antibacterial soap.? Wear comfortable, loose fitting clothing.? - Jewelry must be removed prior to entering the operating room.? Rings and piercings that are not removed may be cut off. - The hospital will not accept responsibility for valuables.? - Please leave all valuables, including medications, at home the day of surgery. If you are going home after surgery, a licensed services delivery driver must drive you home.? - NO public transportation without another adult if you receive anesthesia. - We recommend that an adult stay with you for 24 hours following discharge. - We also recommend that you do not drive, make important decision, drink alcoholic beverages, or take any drugs that were not prescribed by your health care provider for at least 24 hours after your discharge time. Follow any additional instructions given to you from your surgeon. Telephone instructions given to _Cele__and asked if any additional questions and then verbalized understanding. Patient advised to call surgeon office or pre surgery nurse liaison [phone] if any additional questions.
--- NOTE | 2024-07-21 15:42 | P.HP_ITS ---
H&P: HPI History of Present Illness Date/Time: 07/21/24 15:42 Chief Complaint: abnormal uterine bleeding Narrative: 43-year-old female who presents for robotic assisted hysterectomy. Patient has dealt with abnormal uterine bleeding for some time. Patient had an attempt at endometrial ablation. Endometrial ablation failed due to uterine width. Patient has been taking progesterone OCPs. Patient desires definitive management via hysterectomy. Review of Systems Cardiovascular: Cardiovascular: Denies chest pain, Denies leg edema, Denies palpitations, Denies dyspnea and Denies dyspnea on exertion Respiratory: Respiratory: Denies cough, Denies dyspnea and Denies dyspnea on exertion Gastrointestinal: Gastrointestinal: Denies abdominal pain, Denies constipation, Denies diarrhea, Denies nausea and Denies vomiting Genitourinary: Genitourinary: Denies hematuria, Denies urinary frequency, Denies dysuria, Denies pelvic pain, Denies urinary incontinence and Denies vaginal discharge Neurologic: Reports system reviewed and no additional complaints, except as documented Psychiatric: Psychiatric: Reports no additional psychiatric complaints Endocrine: Endocrine: Denies palpitations PMFSH Past Medical History Medical History (Updated 07/07/24 @ 10:44 by Hayden Johnston MD) Anxiety Crohn disease CTS (carpal tunnel syndrome) Diverticulosis GERD (gastroesophageal reflux disease) Hyperlipidemia Left ACL tear repair in left Obese CHUCK (obstructive sleep apnea) Osteoarthritis of knee Seasonal allergies Surgical History Surgical History (Updated 07/07/24 @ 10:31 by Massiel Simons CMA) H/O colonoscopy H/O right knee surgery History of tonsillectomy S/P ACL repair left Status post carpal tunnel release of both wrists Family History Family History Mother Family history non-contributory Acute rheumatic arthritis Diabetes mellitus Alcoholism Grandparent Cerebrovascular accident maternal grandmother / paternal grandfather Father Cerebrovascular accident Grandparent Alcoholism Heart disease Cerebrovascular accident Social History Social History Social History: Pt is confident completing medical forms. 06/05/24 Smoking packs per day: 0.25 Smoking cigarettes per day: 5.0 Years smoked: 30 Smoking pack-years: 7.50 Smoking status: Former smoker Tobacco type: cigarettes Second hand tobacco smoke exposure: Yes Smoking end date: 07/03/24 Alcohol intake: current Alcohol use details: 1 monthly Substance use: never Substance use type: does not use Do You Feel Safe in your Home?: Yes Lack of Transportation: No Lack of Food: Never True Current Housing: I Have Housing Concerned About Future Housing: No Difficulty Paying Gas/Electric Bills: No Difficulty Paying for Meds: No Currently Unemployed: No Education: Associate Degree Difficulty w/ Childcare or Family Care: No Living arrangements: with family Additional living arrangements comments: / partner now for 6 years Occupation/Education: occupation 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 Gender identity (if verbalized by the patient): Female Sexual Orientation (if Verbalized by the Patient): Straight or Heterosexual Spiritual care concerns: No Agree to blood products: Yes Meds Home Medications and Allergies Home Medications Medication Instructions Recorded Confirmed Type hydroxyzine HCl 25 mg tablet 25 mg PO BID PRN Anxiety 07/17/23 07/16/24 History sulfasalazine 500 mg tablet 500 mg PO BID 07/17/23 07/16/24 History bupropion HCl 150 mg tablet,12 hr 150 mg PO BID #180 tabs 01/01/24 07/16/24 Rx sustained-release lamotrigine 25 mg tablet 50 mg PO HS #180 tabs 01/01/24 07/16/24 Rx omeprazole 40 mg capsule,delayed 40 mg PO DAILY #90 caps 04/21/24 07/16/24 Rx release rosuvastatin 10 mg tablet 10 mg PO HS #90 tabs 04/21/24 07/16/24 Rx norethindrone (contraceptive) 0.35 See Rx Instructions .Route 04/27/24 07/16/24 Rx mg tablet .COMPLEX #84 tabs tramadol 50 mg tablet 50 mg PO Q12H PRN pain #30 tabs 06/05/24 07/16/24 Rx glucosamine IIt-[id number]-[id number] 1 tablet PO DAILY 07/16/24 07/16/24 History landy 1,500 mg-400 unit-100 mg tablet (Glucosamine Daily Complex) meloxicam 15 mg tablet 15 mg PO EVERY OTHER DAY PRN 07/16/24 07/16/24 Rx Muscle Pain #90 tabs multivitamin 1 tablet PO DAILY 07/16/24 07/16/24 History omega 5-cly-rfc-fish oil 1,200 mg 2 cap PO DAILY 07/16/24 07/16/24 History (144 mg-216 mg) capsule (Fish Oil) spironolactone 50 mg tablet 50 mg PO QAM #90 tabs 07/21/24 Rx Allergies Allergy/AdvReac Type Severity Reaction Status Date / Time fluoxetine [From Prozac] AdvReac Mild Rash Verified 07/16/24 11:32 Exam Const: General: no acute distress Eyes: EOM: EOMs intact bilaterally Neck: Neck: supple Thyroid: thyroid normal Chest: Breast/axilla inspection: normal inspection of the breasts Breast/a xilla palpation: normal palpation of the breasts, normal palpation of the axillae and no axillary lymphadenopathy Resp: Effort & Inspection: normal respiratory effort Auscultation: clear to auscultation bilaterally Cardio: Rate: regular rate Rhythm: regular rhythm GI: Inspection: non-distended GI Palp: Yes Soft to palpation, No Tenderness to palpation present (GI) and No Guarding due to palpation present (GI) Auscultation: normal bowel sounds : General: No bladder normal to palpation External Female Exam: normal external appearance Speculum Exam - Vagina: normal vaginal discharge and No vaginal bleeding Speculum Exam - Cervix: nontender Bimanual exam- vagina & uterus: No bladder normal to palpation and No Cervical tenderness present OB/external & speculum: No vaginal bleeding Skin: General skin exam: normal color and no rashes or lesions noted Neuro: Cognition (Neuro): normal cognition Speech: normal speech Extrem: General: normal to inspection and no edema Psych: Mental Status: mental status grossly normal Affect: normal affect Assessment and Plan Assessment and plan (1) Abnormal uterine bleeding (AUB): Code(s): N93.9 - Abnormal uterine and vaginal bleeding, unspecified Status: Acute Assessment and Plan: 43-year-old female who presents to discuss management of AUB Patient has dealt with AUB for some time Patient had an attempt at endometrial ablation Ablation was aborted due to uterine width and inability to deploy the device Patient has had endometrial biopsy in the past that showed benign endometrium Patient currently taking progesterone only OCPs She desires definitive management via hysterectomy Robotic hysterectomy discussed at length Risks, benefits, alternatives reviewed Patient requests definitive management Will plan for robotic assisted TLH /BS (2) Obese: Qualifiers: Obesity type: due to excess calories Obesity classification: adult class 2 (BMI 35 - 39.9) Serious obesity comorbidity presence: with serious comorbidity Body mass index: BMI 37.0-37.9 Qualified Code(s): E66.01 - Morbid (severe) obesity due to excess calories; Z68.37 - Body mass index [BMI] 37.0- 37.9, adult Code(s): E66.9 - Obesity, unspecified Status: Acute
[2024-07-22] VITALS (10 sets, daily range): BP systolic 120–157; BP diastolic 70–93; PULSE 72–97; RESP 14–20; TEMP 36.2–37.1; O2SAT 94–100
[2024-07-22] MEDS: ACETAMINOPHEN 500 MG TABLET 1000 MG PO ×4 (06:41→21:35)
[2024-07-22] MEDS: LACTATED RINGERS 1,000 ML 30 ML IV CONT ×2 (06:45→09:00)
--- NOTE | 2024-07-22 06:54 | WPDANESEPPF ---
Anes - Initial Pre Proc Eval Procedure: Operation Date: 07/22/24 07:30 Proposed Procedures p Robotic Assisted Total Laparoscopic Hysterectomy, Bilateral Salpingectomy - Hayden Johnston MD Date/Time: 07/22/24 06:54 Surgeon: Hayden Johnston MD Pre Op Diagnosis: abnormal uterine bleeding Patient Data Age: 43 Gender: F Height: 1.73 m Weight: 113.6 kg Allergies Allergy/AdvReac Type Severity Reaction Status Date / Time fluoxetine [From Prozac] AdvReac Mild Rash Verified 07/22/24 06:20 Home Medications Medication Instructions Recorded Confirmed Type hydroxyzine HCl 25 mg tablet 25 mg PO BID PRN Anxiety 07/17/23 07/22/24 History sulfasalazine 500 mg tablet 500 mg PO BID 07/17/23 07/22/24 History bupropion HCl 150 mg tablet,12 hr 150 mg PO BID #180 tabs 01/01/24 07/22/24 Rx sustained-release lamotrigine 25 mg tablet 50 mg PO HS #180 tabs 01/01/24 07/22/24 Rx omeprazole 40 mg capsule,delayed 40 mg PO DAILY #90 caps 04/21/24 07/22/24 Rx release rosuvastatin 10 mg tablet 10 mg PO HS #90 tabs 04/21/24 07/22/24 Rx norethindrone (contraceptive) 0.35 See Rx Instructions .Route 04/27/24 07/22/24 Rx mg tablet .COMPLEX #84 tabs tramadol 50 mg tablet 50 mg PO Q12H PRN pain #30 tabs 06/05/24 07/22/24 Rx glucosamine [id number] 1 tablet PO DAILY 07/16/24 07/22/24 History landy 1,500 mg-400 unit-100 mg tablet (Glucosamine Daily Complex) meloxicam 15 mg tablet 15 mg PO EVERY OTHER DAY PRN 07/16/24 07/22/24 Rx Muscle Pain #90 tabs multivitamin 1 tablet PO DAILY 07/16/24 07/22/24 History omega 2-oyo-zhw-fish oil 1,200 mg 2 cap PO DAILY 07/16/24 07/22/24 History (144 mg-216 mg) capsule (Fish Oil) spironolactone 50 mg tablet 50 mg PO QAM #90 tabs 07/21/24 07/22/24 Rx Patient hx anesthesia problems: none Family hx anesthesia problems: none Results Review: All pre-operative results and documents have been reviewed as part of the pre-operative evaluation. [facility]LY [facility] Past Medical History Medical History Anxiety Crohn disease CTS (carpal tunnel syndrome) Diverticulosis GERD (gastroesophageal reflux disease) Hyperlipidemia Left ACL tear repair in left Obese CHUCK (obstructive sleep apnea) Osteoarthritis of knee Seasonal allergies Surgical History Surgical History H/O colonoscopy H/O right knee surgery History of tonsillectomy S/P ACL repair left Status post carpal tunnel release of both wrists Family History Family History Mother Family history non-contributory Acute rheumatic arthritis Diabetes mellitus Alcoholism Grandparent Cerebrovascular accident maternal grandmother / paternal grandfather Father Cerebrovascular accident Grandparent Alcoholism Heart disease Cerebrovascular accident Social History Social History Social History: Pt is confident completing medical forms. 06/05/24 Smoking packs per day: 0.25 Smoking cigarettes per day: 5.0 Years smoked: 30 Smoking pack-years: 7.50 Smoking status: Former smoker Tobacco type: cigarettes Second hand tobacco smoke exposure: Yes Smoking end date: 07/03/24 Alcohol intake: current Alcohol use details: 1 monthly Substance use: never Substance use type: does not use Do You Feel Safe in your Home?: Yes Lack of Transportation: No Lack of Food: Never True Current Housing: I Have Housing Concerned About Future Housing: No Difficulty Paying Gas/Electric Bills: No Difficulty Paying for Meds: No Currently Unemployed: No Education: Associate Degree Difficulty w/ Childcare or Family Care: No Living arrangements: with family Additional living arrangements comments: / partner now for 6 years Occupation/Education: occupation 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 ) Neurological: alert and oriented Last oral intake: >/= 8 hours ASA classification: III Emergent: no Anesthetic plan: proceed Anesthesia type and monitoring: general ETT and standard monitoring Results Review: All pre-operative results and documents have been reviewed as part of the pre-operative evaluation. Hyperlipidemia, CHUCK on CPAP, Crohn's. EKG w NSR. Ex smoker, quit 06/2024 after 15 years. Informed Consent: The patient's anesthetic plan and its attendant risks and benefits were discussed with the patient/family/POA. Questions were solicited and answers provided to the satisfaction of the patient/family/POA.
[2024-07-22] MEDS: KETOROLAC 15 MG/ML VIAL (*BKC) IV PUSH (06:58)
--- NOTE | 2024-07-22 07:23 | WPDHPUPDATE1 ---
History and Physical Update Update Date/Time: 07/22/24 07:23 History and Physical has been reviewed, including an updated exam of the patient. There are NO changes in the patient's condition. Risks, benefits, and alternatives have been discussed and questions answered. Patient agrees to proceed with procedure.
[2024-07-22] MEDS: ceFAZolin 2 GM/D5W 50 ML 2 GM/50 ML BAG IVPB (07:33)
[2024-07-22 08:41] LABS: BEDSIDEPREGUCG Negative (Negative)
--- NOTE | 2024-07-22 08:45 | W.PM.PROC2 ---
Procedure Note - Detailed Date of Procedure 07/22/24 Pre-op Diagnosis abnormal uterine bleeding Post-op Diagnosis Same Procedure Performed robotic assisted total laparoscopic hysterectomy and bilateral salpingectomy Surgeon Hayden Johnston MD Anesthesia General Indications abnormal uterine bleeding Findings grossly normal appearing uterus, bilateral fallopian tubes, bilateral ovaries Description of Procedure After the patient was appropriately consented she was taken to the operating room where she was transferred to the table in a dorsal supine position. General anesthesia was then induced with endotracheal intubation. The patient was transferred to a dorsal lithotomy position using adjustable yellow-fin stirrups. Her position was adjusted for appropriate support of her lower back and lower extremities. The patient was prepped and draped. A transurethral schneider catheter was place. The cervix was sequentially dilated and a PURVI uterine manipulator placed in typical fashion about a 3cm GUILLERMO ring. Gloves were changed. After confirmation of a functioning orogastric tube, lidocaine was injected at Nelson's point in the LUQ and a 8 mm incision was made. A 5mm Optiview trocar was then inserted into the abdominal cavity under direct visualization and done so without complication. The abdomen was then insufflated with approximately 2-3L of CO2 establishing a pneumoperitoneum and the patient was placed in Trendelenburg position. Just above the umbilicus in the midline, a 8 mm incision made after injection of lidocaine and a 8 mm bladeless trocar advanced into the abdominal cavity under direct visualization without incident. We subsequently placed two robotic ports in a similar fashion, one in the left mid-quadrant and one in the right, 10cm lateral to the midline port. The robot was then docked. Attention was turned to the left pelvis. The left fallopian tube was removed by sequentially dividing the mesosalpinx towards the uterus sparing the ovary. The utero-ovarian ligament was desiccated and transected, as was the round ligament. The posterior peritoneal leaf was taken down to the GUILLERMO ring. The anterior leaf was developed as well as the start of the bladder flap. The left uterine artery was then skeletonized and desiccated and transected just above the level of the GUILLERMO ring. Attention was turned to the right pelvis. The right fallopian tube was removed by sequentially dividing the mesosalpinx towards the uterus sparing the ovary. The utero-ovarian ligament was desiccated and transected, as was the round ligament. The posterior peritoneal leaf was taken down to the GUILLERMO ring. The anterior leaf was developed as well as the start of the bladder flap. The right uterine artery was then skeletonized and desiccated and transected just above the level of the GUILLERMO ring. The bladder was then further dissected inferiorly over the level of the GUILLERMO ring. A circumferential colpotomy was made using monopolar current. The uterus, cervix, bilateral tubes were then delivered transvaginally. I then placed a single figure of eight suture of 0-vicryl in the left corner of the vaginal cuff. I then re-approximated the colpotomy with a running #1 PDO Quill suture in 2 layers. Following this dissection, the abdomen and pelvis were copiously irrigated and all surgical sites found to be hemostatic. Skin sites were reapproximated with 4-0 Vicryl in a subcuticular fashion. Steri-Strips were placed. The patient tolerated the procedure well. Sponge, needle and instrument counts were correct x 2 and the patient was taken to recovery in stable condition. Ancef wase given for antimicrobial prophylaxis. The patient had SCD's on for VTE prophylaxis during the entire procedure. Estimated Blood Loss 10 Drains No Packing No Pathology Yes (cervix, uterus, bilateral fallopian tubes) Complications No immediate complications Condition Stable Disposition PACU [facility] Billing Surgery - Charge Forward: Surgery Billing
[2024-07-22] MEDS: LIDO 1%/EPINEPHRINE 1:100,000 50 ML VIAL INFILTRATE (09:01)
[2024-07-22] MEDS: fentaNYL CITRATE INJ (*CRX) 100 MCG/2 ML VIAL 25 MCG IV PUSH ×8 (09:17→10:09)
[2024-07-22] MEDS: diphenhydrAMINE HCl INJ 50 MG/ML VIAL 25 MG IV PUSH (09:30)
--- NOTE | 2024-07-22 10:26 | ADMGEN ---
1023-This patient, Yusra Roberts, was admitted to OB 2nd Floor Room 289-00. Patient/family oriented to hospital policies and general routines including ID bracelet, bed and alarms, visiting hours, pain management, procedures, bathroom and other care routines, personal items, smoking policy, room service/diet, and visiting hours. Information on how to activate the Rapid Response Team has been discussed. Patient/Family are encouraged to report perceived risks to care and to ask questions if they do not understand what they are told or what they should do.
[2024-07-22] MEDS: DOCUSATE SODIUM 100 MG CAPSULE PO ×2 (10:57→17:46)
[2024-07-22] MEDS: OMEGA 3 POLYUNSAT FATTY ACIDS 1 GM CAP PO (10:57)
[2024-07-22] MEDS: sulfaSALAzine 500 MG TABLET PO ×2 (10:58→17:47)
[2024-07-22] MEDS: SIMETHICONE 80 MG TAB.CHEW PO ×2 (12:18→17:46)
[2024-07-22] MEDS: KETOROLAC 30 MG/ML VIAL (*BKC) IV PUSH ×3 (12:18→21:36)
[2024-07-22] MEDS: SPIRONOLACTONE 50 MG TABLET PO (12:19)
[2024-07-22] MEDS: MULTIVITAMINS THERAPEUTIC TAB (*BKC) 1 TABLET PO (12:19)
[2024-07-22] MEDS: oxyCODONE HCL (*CRX) 5 MG TAB IR 10 MG PO ×2 (12:26→19:15)
[2024-07-22] MEDS: buPROPion HCL SR (12 HR) 150 MG TAB PO (17:46)
[2024-07-22] MEDS: PANTOPRAZOLE 40 MG TABLET PO (17:46)
[2024-07-22] MEDS: lamoTRIgine 50 MG TABLET PO (21:36)
[2024-07-22] MEDS: ROSUVASTATIN 10 MG TABLET PO (21:36)
[2024-07-23] MEDS: oxyCODONE HCL (*CRX) 5 MG TAB IR PO ×3 (01:51→10:21)
[2024-07-23] MEDS: hydrOXYzine HCL 25 MG TABLET PO (01:52)
[2024-07-23 01:55] VITALS: BP 122/80; PULSE 76; RESP 14; TEMP 36.5; O2SAT 98
[2024-07-23] MEDS: IBUPROFEN 600 MG TABLET PO ×2 (04:00→10:18)
[2024-07-23] MEDS: ACETAMINOPHEN 500 MG TABLET 1000 MG PO ×2 (04:00→10:17)
[2024-07-23 04:08] VITALS: BP 124/86; PULSE 81; RESP 14; TEMP 36.8; O2SAT 97
[2024-07-23 05:28] LABS: Basophils Absolute Auto 0.1 K/mm3 (0.0-0.1); Basophils Percent Auto 0.4 % (0.2-1.2); Eosinophils Absolute Auto 0.2 K/mm3 (0-0.3); Eosinophils Percent Auto 1.1 % (0-4.4); Hematocrit 37.9 % (37.0-47.0); Hemoglobin 12.1 g/dL (12.0-15.0); Immature Granulocyte Absolute 0.11 K/mm3 (0.00-0.031); Immature Granulocyte Percent A 0.7 % (0-0.5); Lymphocytes Absolute Auto 3.34 K/mm3 (0.9-3.2); Lymphocytes Percent Auto 19.9 % (18.3-44.2); Mean Corpuscular HGB Conc 31.9 g/dl (32-36); Mean Corpuscular Hemoglobin 30.4 pg (26-34); Mean Corpuscular Volume 95.2 fl (80-100); Mean Platelet Volume 11.7 fl (7.4-10.4); Monocytes Absolute Auto 1.2 K/mm3 (0.1-0.6); Monocytes Percent Auto 7.2 % (2.6-8.5); Neutrophils Absolute Auto 11.9 K/mm3 (1.3-6.7); Neutrophils Percent Auto 70.7 % (45.5-73.1); Platelet Count Result 231 k/mm3 (150-375); Red Blood Count 3.98 M/mm3 (4.2-5.4); Red Cell Distribution Width 13.1 % (11.5-14.5); White Blood Count 16.8 K/mm3 (4.5-10.0)
[2024-07-23 05:37] LABS: Anion Gap 7 mmol/L (4-12); Blood Urea Nitrogen 12 mg/dL (7-17); Calcium 8.4 mg/dL (8.4-10.2); Carbon Dioxide 26 mmol/L (22-30); Chloride 103 mmol/L (98-107); Estimated CRCL calculation 137 ml/min; Estimated Glomerular Filt Rate > 60; Glucose 140 mg/dL (65-110); Potassium 3.4 mmol/L (3.4-5.0); Sodium 136 mmol/L (137-145)
[2024-07-23 07:50] VITALS: BP 120/88; PULSE 88; RESP 18; TEMP 36.1; O2SAT 97
--- NOTE | 2024-07-23 07:55 | P.DS_ITS ---
DS: Admitting Diagnosis Discharge Date 07/23/24 Admitting Diagnosis abnormal uterine bleeding DS: Discharge Diagnosis Discharge Diagnosis (1) Abnormal uterine bleeding (AUB): Code(s): N93.9 - Abnormal uterine and vaginal bleeding, unspecified Status: Acute DS: Summary Hospital Course Hospital Course: Yusra Roberts was admitted after robotic assisted total laparoscopic hysterectomy and bilateral salpingectomy for abnormal uterine bleeding. The abo ve procedure was performed with no complications. She is doing well post op. She states her pain is well controlled with PO medications. She reports minimal bleeding. She is ambulating up to the chair. Her schneider catheter was removed. She is tolerating PO without N/V. She reports passing flatus. Status at Discharge Overall status at discharge: patient is progressing back to baseline Time Spent with Patient Time attestation: Total time spent providing and/or coordinating discharge services: Time spent: Less than 30 minutes Exam Const: General: comfortable and no acute distress Limitations: no limitations Resp: Effort & Inspection: normal respiratory effort Auscultation: clear to auscultation bilaterally Cardio: Rate: regular rate Rhythm: regular rhythm GI: Inspection: non-distended GI Palp: Yes Soft to palpation, Yes Tenderness to palpation present (GI) (milder tenderness to deep palpation) and No Guarding due to palpation present (GI) Auscultation: normal bowel sounds Other: incisions C/D/I covered with dermabond Urinary Catheter: Urinary Catheter: urine clear Skin: General skin exam: normal color Extrem: General: normal to inspection Psych: Mental Status: mental status grossly normal Affect: normal affect DS: Data Data Completed and Pending Pending studies at discharge: Pending at discharge 07/22/24 08:31 Surgical [PTH] Routine Labs on day of discharge: Labs from last 24 hours 07/23/24 07/22/24 04:13 06:25 WBC 16.8 H RBC 3.98 L Hgb 12.1 Hct 37.9 MCV 95.2 MCH 30.4 MCHC 31.9 L RDW 13.1 Plt Count 231 MPV 11.7 H Immature Gran % (Auto) 0.7 H Neut % (Auto) 70.7 Lymph % (Auto) 19.9 [place] % (Auto) 7.2 Eos % (Auto) 1.1 Baso % (Auto) 0.4 Lymph # (Auto) 3.34 H [place] # (Auto) 1.2 H Eos # (Auto) 0.2 Baso # (Auto) 0.1 Abs Immat Gran (auto) 0.11 H Absolute Neuts (auto) 11.9 H Absolute Nucleated RBC 0.000 Nucleated RBC % 0.0 Sodium 136 L Potassium 3.4 Chloride 103 Carbon Dioxide 26 Anion Gap 7 BUN 12 D Creatinine 0.60 L Estim Creat Clear Calc 137 Estimated GFR > 60 Glucose 140 H Calcium 8.4 POC Urine HCG, Qual Negative Discharge Plan Discharge Patient Disposition: Home, Self-Care Patient Instructions: Laparoscopic Hysterectomy (DC) Stand Alone Forms: General Discharge Instructions Follow-up/Referrals: Hayden Johnston MD [Physician] - Discharge Medications: New oxycodone-acetaminophen 5-325 mg tablet 1 tablet PO Q6H PRN (Reason: pain) Qty: 28 0RF ibuprofen 600 mg tablet 600 mg PO Q6H PRN (Reason: pain) Qty: 30 0RF Continued sulfasalazine 500 mg tablet 500 mg PO BID hydroxyzine HCl 25 mg tablet 25 mg PO BID PRN (Reason: Anxiety) tramadol 50 mg tablet 50 mg PO Q12H PRN (Reason: pain) Qty: 30 0RF multivitamin Tablet 1 tablet PO DAILY omega 0-yob-dnz-fish oil [Fish Oil] 1,200 (144-216) mg Capsule 2 cap PO DAILY [id number] serr [Glucosamine Daily Complex] 1,500-400-100 mg-unit-mg Tablet 1 tablet PO DAILY Rx Instructions: give after food/meal lamotrigine 25 mg tablet 50 mg PO HS Qty: 180 0RF bupropion HCl 150 mg tablet sustained-release 12 hr 150 mg PO BID Qty: 180 0RF omeprazole 40 mg capsule,delayed release(DR/EC) 40 mg PO DAILY Qty: 90 3RF rosuvastatin 10 mg tablet 10 mg PO HS Qty: 90 3RF norethindrone (contraceptive) 0.35 mg tablet See Rx Instructions .ROUTE .COMPLEX Qty: 84 0RF Dose Instruction: TAKE 1 TABLET BY MOUTH DAILY Rx Instructions: TAKE 1 TABLET BY MOUTH DAILY meloxicam 15 mg tablet 15 mg PO EVERY OTHER DAY PRN (Reason: Muscle Pain) Qty: 90 1RF Rx Instructions: Patient says Rx ran out and is not currently taking. spironolactone 50 mg tablet 50 mg PO QAM Qty: 90 1RF
[2024-07-23] MEDS: SIMETHICONE 80 MG TAB.CHEW PO ×2 (08:18→10:17)
[2024-07-23] MEDS: DOCUSATE SODIUM 100 MG CAPSULE PO (08:19)
[2024-07-23] MEDS: SPIRONOLACTONE 50 MG TABLET PO (08:20)
[2024-07-23] MEDS: PANTOPRAZOLE 40 MG TABLET PO (08:20)
[2024-07-23] MEDS: buPROPion HCL SR (12 HR) 150 MG TAB PO (08:21)
[2024-07-23] MEDS: OMEGA 3 POLYUNSAT FATTY ACIDS 1 GM CAP PO (08:21)
[2024-07-23] MEDS: PETROLATUM OINTMENT 5 GM PACKET 1 APPLIC (10:21)
[2024-07-23] MEDS: oxyCODONE HCL (*CRX) 5 MG TAB IR 10 MG PO (14:08)
== END 2024-07-23 14:23 | disposition home or self-care (01) ==
LOC: ANHSURGERY 06:01 → ANHOB2 15:19
PROVIDERS: PCP Nurse Practitioner Family; Visit Provider Student in an Organized Health Care Education/Training Program
PROC: (CPT 58571; principal; 2024-07-22 07:30)
DX: N93.9 Abnormal uterine and vaginal bleeding, unspecified (principal); E78.5 Hyperlipidemia, unspecified; K50.90 Crohn's disease, unspecified, without complications; G47.33 Obstructive sleep apnea (adult) (pediatric); F41.9 Anxiety disorder, unspecified; E66.9 Obesity, unspecified; Z68.39 Body mass index [BMI] 39.0-39.9, adult; Z87.891 Personal history of nicotine dependence
CPT/HCPCS: 58571; S2900; 36415; 80048; 85025; 88307; 99199; A9270; J0690; J1100; J1200; J1885; J2004; J2250; J2405; J2704; J3010; J7030; J7120

== ENCOUNTER 2024-09-04 13:59 | Outpatient (CLI) | payer BC, SELFPAY ==
--- NOTE | ~2024-09-04 | MM_ITS ---
EXAMINATION: MM screening beth BI w benito HISTORY: Screening mammogram TECHNIQUE: Craniocaudal and mediolateral oblique 3-D tomosynthesis images were obtained and synthetic 2-D images were generated. CAD analysis was submitted and interpreted. COMPARISON: No prior mammogram is available for comparison at this institution. BREAST PARENCHYMAL COMPOSITION:Not Dense. There are scattered areas of fibroglandular density. FINDINGS: No suspicious mass, calcification, or architectural distortion are identified in either robert ast to suggest malignancy. There has been no suspicious interval change. IMPRESSION: No mammographic evidence of malignancy. Recommend routine screening mammography in one year. BI-RADS Category 1: Negative Reviewed, dictated and finalized at location . [facility] [employer]
== END 2024-09-04 14:00 | disposition home or self-care (01) ==
LOC: CHSIMG 14:00
PROVIDERS: PCP Nurse Practitioner Family; Visit Provider Student in an Organized Health Care Education/Training Program
DX: Z12.31 Encounter for screening mammogram for malignant neoplasm of breast (principal)
CPT/HCPCS: 77063; 77067